=== PATIENT | female | born 1955 | race Caucasian/White ===

== ENCOUNTER 2016-12-23 13:39 | Emergency (ER) | payer BC ==
[~2016-12-23 13:39] MED LIST: LEVO.1 PO; PERC5TAB12 PO; VENL75 PO
--- NOTE | 2016-12-23 13:51 | PD ---
HPI Chief Complaint: Hip Injury Time Seen by Provider: 13:46 Travel History International Travel<30 days: No Contact w/Intl Traveler<30days: No History of Present Illness HPI Patient is a 61-year-old female with history of left hip arthroplasty who presents the emergency department with left hip pain. Patient was bending over to pick something up when she's felt a sudden popping as a her left hip dislocated. She has had this happened now twice since her hip arthroplasty. Patient denies any paresthesias. Called EMS, noted shortening and preferring to keep the hip and knee flexed. Administered a total of 10 mg morphine en route. PFSH Past Medical History Asthma: Yes COPD: Yes Diminished Hearing: No Respiratory: Yes (COPD, ASTHMA) Thyroid Disease: Yes Social History Alcohol Use: No Tobacco Use: No ( A TEEN) Substance Use: No Allergies-Medications (Allergen,Severity, Reaction): Coded Allergies: Codeine (Verified Allergy, Unknown, 03/05/16) Sulfa (Verified Allergy, Unknown, 03/05/16) Reported Meds & Prescriptions Reported Meds & Active Scripts Active Percocet 5-325 mg (Oxycodone/Acetaminophen) Oxycodone 5/325 Acetaminophen Tab 1 Tab PO Q6H PRN Reported Effexor 75 Mg Tab (Venlafaxine HCl) 75 Mg Tab 75 Mg PO DAILY Synthroid 100 mcg (Levothyroxine Sodium) 100 Mcg Tab 50 Mcg PO DAILY Review of Systems Except as stated in HPI: all other systems reviewed are Neg Physical Exam Narrative GENERAL: Appearing female in no acute distress SKIN: Warm and dry. HEAD: Normocephalic. EYES: No scleral icterus. No injection or drainage. ENT: Mucous membranes pink and moist. NECK: Supple CARDIOVASCULAR: Regular rate and rhythm. No murmur appreciated. RESPIRATORY: No accessory muscle use. Clear to auscultation. Breath sounds equal bilaterally. GASTROINTESTINAL: Obese MUSCULOSKELETAL: No midline tenderness to palpation of thoracic or lumbar spine. Pelvis is stable to AP and lateral compression. Left lower extremity is shortened and slightly internally rotated, good distal sensation and pulses. Patient has focal tenderness about the left hip with pain exquisite with any range of motion of the left hip. NEUROLOGICAL: Awake and alert. Normal speech. PSYCHIATRIC: Appropriate mood and affect; insight and judgment normal. Data Data Last Documented VS Vital Signs Date Time Temp Pulse Resp B/P Pulse Ox O2 Delivery O2 Flow Rate FiO2 12/23/16 15:04 68 19 133/58 97 Nasal Cannula Orders Hip, Uni(Ap&Lat) Wo Ap Pelvis (12/23/16 13:46) Iv Access Insert/Monitor (12/23/16 13:46) Oximetry (12/23/16 13:46) Ecg Monitoring (12/23/16 13:46) Sodium Chloride 0.9% Flush (Ns Flush) (12/23/16 14:00) Fentanyl Inj (Fentanyl Inj) (12/23/16 14:00) Propofol 200 Mg/20 Ml Inj (Diprivan 200 (12/23/16 14:00) Hip, Ap Only Wo Ap Pelvis (12/23/16 ) Immobilizer Knee 20 Inch (12/23/16 ) Propofol 200 Mg/20 Ml Inj (Diprivan 200 (12/23/16 15:15) Hip, Ap Only Wo Ap Pelvis (12/23/16 ) MDM Medical Decision Making Medical Screen Exam Complete: Yes Emergency Medical Condition: Yes Medical Record Reviewed: Yes Differential Diagnosis 61-year-old female with history of left hip arthroplasty here with left hip pain after she bent over and believes her hip dislocated. Differential includes dislocation, fracture, pelvic fracture, contusion. Narrative Course Patient placed on monitor, IV established. X-rays the left hip showed posterior hip dislocation. Residual sedation performed, please see procedure note, unfortunately patient's first procedural sedation was not successful and she warranted a repeat sedation and manipulation with successful reduction and post reduction films. Patient was placed in knee immobilizer will be discharged home with orthopedic surgery follow-up. Procedures Procedure Narrative After the risks and benefits were discussed the following procedure was performed: MODERATE SEDATION: The patient was placed on a monitor technician and pulse oximetry. An ambu bag and suction was immediately available at bedside. The patient was monitored by the nurse. Oxygen saturation, and tidal capnography heart rate and blood pressure were monitored. Procedural sedation was acheived using 50 g fentanyl, 80 mg propofol. The patient was observed until awake and alert. Procedural Sedation time in attendance was 25 minutes. After the risks and benefits were discussed the following procedure was performed: MODERATE SEDATION: The patient was placed on a monitor technician and pulse oximetry. An ambu bag and suction was immediately available at bedside. The patient was monitored by the nurse. Oxygen saturation, end tidal capnography heart rate and blood pressure were monitored. Procedural sedation was acheived using 80 mg propofol. The patient was observed until awake and alert. Procedural Sedation time in attendance was [*] minutes. Hip dislocation reduction: Captain Ignacio technique was used with successful dislocation reduction of the left hip. Diagnosis Primary Impression: Hip dislocation, left Qualified Code: S73.005A - Hip dislocation, left, initial encounter Referrals: Orthopedist call for appointment Patient Instructions: Moderate Sedation (ED) Additional Instructions: Knee immobilizer as applied. Follow-up with orthopedic surgeon as discussed. Med/Other Pt SpecificInfo: No Change to Meds Disposition: 01 DISCHARGE HOME Condition: Stable Safia Lala MD Dec 23, 2016 13:51 Safia Lala MD Dec 23, 2016 13:51
[2016-12-23] MEDS ORDERED: PROPOFOL 200 MG/20 ML AMP IV ONE ×2 (14:00→15:15)
[2016-12-23] MEDS ORDERED: SODIUM CHLORIDE 0.9% FLUSH 5 ML FLUSH IVF PRN (14:00)
--- NOTE | 2016-12-23 14:31 | RADRPT ---
EXAM DATE/TIME: 12/23/2016 14:12 [facility] COMPARISON: No previous studies available for comparison. INDICATIONS : Left hip pain, hip has been replaced twice in the past and has been dislocated before MEDICAL HISTORY : Hypertension. SURGICAL HISTORY : left hip replacement x 2 ENCOUNTER: Initial ACUITY: 1 day PAIN SCORE: 10/10 LOCATION: Left hip FINDINGS: There is posterior dislocation of the femoral component of the prosthesis without fracture. There are no radiographic findings to suggest loosening of the femoral or acetabular components. CONCLUSION: Hip dislocation as above Madhu Dior MD on December 23, 2016 at 14:29 Board Certified Radiologist. This report was verified electronically.
[2016-12-23 15:00] VITALS: BP 104/52; PULSE 73; RESP 16; O2SAT 99
[2016-12-23 15:04] VITALS: BP 133/58; PULSE 68; RESP 19; O2SAT 97
[2016-12-23 15:30] VITALS: BP 105/51; PULSE 78; RESP 20; O2SAT 99
--- NOTE | 2016-12-23 15:31 | RADRPT ---
EXAM DATE/TIME: 12/23/2016 15:09 [facility] COMPARISON: HIP LEFT AP ONLY WO AP PELVIS, March 05, 2016, 15:45. INDICATIONS: Post reduction left hip MEDICAL HISTORY: None. SURGICAL HISTORY: Hip replaced x 2 ENCOUNTER: Subsequent ACUITY: 1 day PAIN SCORE: 10/10 LOCATION: Left hip FINDINGS: There is an anterior inferior dislocation of the left hip that is not in anatomic alignment following reduction. CONCLUSION: Reduction is incomplete. Simone Singh MD FACR on December 23, 2016 at 15:14 Board Certified Radiologist. This report was verified electronically.
--- NOTE | 2016-12-23 16:19 | RADRPT ---
EXAM DATE/TIME: 12/23/2016 15:47 [facility] COMPARISON: HIP LEFT AP ONLY WO AP PELVIS, December 23, 2016, 15:09. INDICATIONS : Post reduction left hip MEDICAL HISTORY : None. SURGICAL HISTORY : left hip replaced x 2 ENCOUNTER: Subsequent ACUITY: 1 day PAIN SCORE: 10/10 LOCATION: Left hip FINDINGS: AP view of the left hip demonstrates satisfactory reduction of a dislocated hip prosthesis. The femor al component is now well-seated within the acetabular cup. Adjacent bones remain intact. CONCLUSION: Satisfactory reduction of a dislocated left hip replacement. Silvano Gallagher MD on December 23, 2016 at 16:16 Board Certified Radiologist. This report was verified electronically.
[2016-12-23 16:30] VITALS: BP 126/60; PULSE 76; RESP 16; O2SAT 100
[2016-12-23 17:04] VITALS: BP 111/59; PULSE 77; RESP 16
[2016-12-23 18:21] VITALS: BP 119/59
== END 2016-12-23 18:25 | disposition home or self-care (01) ==
LOC: NEPA 13:39
DX: S73.005A Unspecified dislocation of left hip, initial encounter (principal); J45.909 Unspecified asthma, uncomplicated; J44.9 Chronic obstructive pulmonary disease, unspecified; X50.9XXA Other and unspecified overexertion or strenuous movements or postures, initial encounter; Y99.9 Unspecified external cause status; Y93.89 Activity, other specified
CPT/HCPCS: 27265; 73501; 73502; 99152; 99153; 99284; J3010; L1830